=== PATIENT | female | born 1945 | race Caucasian/White ===

== ENCOUNTER 2016-04-21 09:08 | Emergency (ER) | payer MEDICARE, MEDICAID ==
[~2016-04-21] VITALS: Ht 157.5 cm; Wt 63.6 kg
[~2016-04-21 09:08] MED LIST: ALEN70TA2 PO; ASPI-973 PO; CALC1TAB23 PO; DICY10CA56 PO; METO-301 PO; OMEP20CA11 PO; PERM60CR4 TP
[2016-04-21 09:09] VITALS: BP 124/86; PULSE 109; RESP 28; O2SAT 99
--- NOTE | 2016-04-21 09:15 | ED.REPORT ---
HPI-Dyspnea / Wheezing Date of Service Apr 21, 2016 ED Provider: Micah Yuen Patient is a 71 year old female who presents to the ED complaining of cough onset one week ago. Associated symptoms include SOB, wheezing, and chest pain when coughing. She denies fever, abdominal pain, or any other symptoms. She denies taking any daily medications. Nursing Notes Stated Complaint: SICK/CHEST PAIN/SOB Chief Complaint: FLU/Cold Symptoms Nursing Notes Reviewed: Yes Allergies: Coded Allergies: No Known Allergies (Verified , 10/08/15) Scheduled Alendronate Sodium (Fosamax) 70 Mg Tablet 70 MG PO WEEKLY Aspirin (Aspirin) 81 Mg Tablet 81 MG PO DAILY Dicyclomine (Bentyl) 10 Mg Capsule 10 MG PO QID Doxycycline Monohyd (Doxycycline Monohyd) 100 Mg Tablet 100 MG PO BID Omeprazole (Omeprazole) 20 Mg Capsule.dr 20 MG PO DAILY Permethrin (Permethrin Cream) 60 Gm Cream..g. 1 APPLIC TP UD Follow package instructions Prednisone (PredniSONE) 20 Mg Tablet 40 MG PO DAILY Scheduled PRN Hydrocodone/Acetaminophen (Lortab 10 mg-300 mg/15 ml Elxr) 473 Ml Solution 10 ML PO Q4 PRN PRN For Pain Metoclopramide (Reglan) 10 Mg Tablet 10 MG PO QID PRN PRN nausea/abdominal cramping Miscellaneous Medications Calcium Carbonate/Vitamin D3 (Os-Ricardo 500+D3 Caplet) 500 Mg-600 Tablet 1 EACH PO General Time Seen by MD: 09:15 Chief Complaint Cough Hx Obtained From: Patient Arrived By: Walk-in Past Medical History Past Medical History Notes: PCP: Dr. Cordero Past Medical History Left shoulder pain chronic dysphagia lumbar pain carpal tunnel osteoporosis Reports: Hyperlipidemia, Hypertension Past Surgical History Pt had an upper GI colonoscopy for dysphagia with dx of reflux. Reports: Hysterectomy Family History Mother had heart problems, father of [place] Multiple family members with CAD Smoking History Light Tobacco Smoker Social History Alcohol Use: Denies alcohol use Drug Use: Denies drug use Ambulatory Status Independent Review of Systems Constitutional: Denies: Fever Respiratory: Reports: Non-productive cough, Shortness of breath Cardiovascular: Reports: Chest pain Complete sys rev & neg: except as marked. GI: Denies: Abdominal pain Physical Exam Initial Vital Signs Vital Signs (First) Date Time Temp Pulse Resp B/P Pulse Ox O2 Delivery O2 Flow Rate FiO2 04/21/16 09:09 36.3 109 28 124/86 99 Room Air Initial VS: Reviewed Head / Eyes: Atraumatic, Normocephalic Skin: Warm, Dry Neurologic: Alert, Oriented, Nonfocal Psychiatric: Mood/affect normal, Behavior normal, Normal thought content General/Constitutional: Awake, Alert, Well developed Neck: Full range of motion Respiratory / Chest: No rhonchi, No wheezing Rales / Rhonchi: Positive: Rales diffuse (Scattered ) Cardiovascular: Heart rate NL, Regular rhythm, Heart sounds NL Re-Eval/Medical Decision Med Decision/Clinical Course Given a week of cough in a smoker with apparent COPD though this is not diagnosed, I think empiric antibiotic/anti-inflammatory treatment is appropriate with close outpatient follow-up. Her initial vital signs looked somewhat concerning, but to interview her in the room she looks entirely well and her vital signs are not as bad as noted in triage, namely heart rate of 100 , respiratory rate of 20. Re-Evaluation/Progress : Time of Eval: 09:26 )( Re-Eval Resp / Chest: No wheezing Re-Evaluation/Progress Note: Discussed plan for discharge. Patient understands and agrees with plan. All questions addressed at this time. Counseled Regarding: Diagnosis, Need for follow-up, When/why to return to ED Discharge & Departure Impression: Primary Impression: Acute bronchitis Bronchitis organism: unspecified organism Qualified Code: J20.9 - Acute bronchitis, unspecified Additional Impressions: Cough Bronchitis due to tobacco use Disposition: Home Patient Instructions: Acute Bronchitis (ED), Cigarette Smoking and Its Health Risks (GEN), How to Stop Smoking (GEN) Additional Instructions: You should stop smoking. Smoke a few cigarettes a day is only slightly better than smoking 2 packs a day. This infection that you are suffering right now is directly related to your tobacco use. Use doxycycline 2 pills at the first dose and then 1 pill twice daily. Take prednisone 40 mg daily for 5 days. Use cough syrup 2 or 3 teaspoons every 4-6 hours as needed to help control the cough. The cough syrup has a narcotic in it and he should not drive a car or operate machinery or take care of young children while taking this medication. Referrals: Nasreen Cordero MD (PCP) copies to: Nasreen Cordero MD, Kirk H MD Apr 21, 2016 09:15 ALIZA FLORES Apr 21, 2016 09:26
[2016-04-21 09:23] VITALS: PULSE 100; RESP 20
[2016-04-21] MEDS ORDERED: HYDR473S48 PO (09:26)
[2016-04-21] MEDS ORDERED: PRE20 PO (09:26)
[2016-04-21] MEDS ORDERED: DOXY-232 PO (09:26)
[2016-04-21 09:35] VITALS: BP 124/86; PULSE 100; RESP 20; O2SAT 99
== END 2016-04-21 09:35 | disposition home or self-care (01) ==
LOC: SED 09:08
DX: J20.9 Acute bronchitis, unspecified (principal); F17.200 Nicotine dependence, unspecified, uncomplicated; E78.5 Hyperlipidemia, unspecified; I10 Essential (primary) hypertension; Z79.82 Long term (current) use of aspirin

== ENCOUNTER 2016-06-15 13:59 | Emergency (ER) | payer MEDICARE, MEDICAID ==
[~2016-06-15] VITALS: Ht 160 cm; Wt 63.6 kg
[~2016-06-15 13:59] MED LIST changes: +DOXY-232 PO; +HYDR473S48 PO; +PRE20 PO
[2016-06-15 14:19] VITALS: BP 106/77; PULSE 100; RESP 16; O2SAT 95
--- NOTE | 2016-06-15 14:48 | ED.REPORT ---
HPI-Extremity Problem Lower Date of Service Jun 15, 2016 ED Provider: Rosas Rios DO The patient is a 71 year old female with history of bursitis in her shoulder, hypertension, and hypertension, who presents to the emergency department complaining of right posterior knee pain that began this morning. While she was walking to the restroom this morning she suddenly develop pain to her left knee. She did not feel a tear or pop. The pain radiates down into her calf. She describes the pain as 10/10, constant, sharp pain. She is not able to bear weight. She has noticed some swelling. She denies any known injury or trauma. Her pain is still present. She has not had similar symptoms in the past. She denies prior surgeries to her lower extremities. She denies fever, chills, nausea, vomiting or rash. Nursing Notes Stated Complaint: RT KNEE PAIN Chief Complaint: Extremity Trauma Nursing Notes Reviewed: Yes Allergies: Coded Allergies: No Known Allergies (Verified , 10/08/15) Scheduled Alendronate Sodium (Fosamax) 70 Mg Tablet 70 MG PO WEEKLY Aspirin (Aspirin) 81 Mg Tablet 81 MG PO DAILY Dicyclomine (Bentyl) 10 Mg Capsule 10 MG PO QID Doxycycline Monohyd (Doxycycline Monohyd) 100 Mg Tablet 100 MG PO BID Omeprazole (Omeprazole) 20 Mg Capsule.dr 20 MG PO DAILY Permethrin (Permethrin Cream) 60 Gm Cream..g. 1 APPLIC TP UD Follow package instructions Prednisone (PredniSONE) 20 Mg Tablet 40 MG PO DAILY Scheduled PRN Hydrocodone/Acetaminophen (Lortab 10 mg-300 mg/15 ml Elxr) 473 Ml Solution 10 ML PO Q4 PRN PRN For Pain Metoclopramide (Reglan) 10 Mg Tablet 10 MG PO QID PRN PRN nausea/abdominal cramping Miscellaneous Medications Calcium Carbonate/Vitamin D3 (Os-Ricardo 500+D3 Caplet) 500 Mg-600 Tablet 1 EACH PO General Time Seen by MD: 14:27 Chief Complaint Knee injury right Hx Obtained From: Patient Arrived By: Wheelchair Onset Occurred: 5 - 8 hours ago Symptom Duration: Since onset Caused by: Mechanism unknown Location: : Knee right Quality: Painful Severity: Current: Severe Severity: Maximum: Severe Pertinent Negative: Pt denies other symptoms Exacerbated by: Range of motion, Movement Relieved by: Immobilization Recent Healthcare: No recent doctor visit, No recent hospitalization Similar Sx Previous: No Past Medical History Past Medical History Notes: PCP: Dr. Cordero Past Medical History Chronic left shoulder pain Chronic dysphagia Lumbar pain Carpal tunnel Osteoporosis Reports: Hyperlipidemia, Hypertension Past Surgical History Pt had an upper GI colonoscopy for dysphagia with dx of reflux. Reports: Hysterectomy Family History Mother had heart problems, father of [place] Multiple family members with CAD Smoking History Light Tobacco Smoker Social History Alcohol Use: Denies alcohol use Drug Use: Denies drug use Other Social History: Local resident Ambulatory Status Walker Review of Systems Constitutional: Denies: Chills, Fever Musculoskeletal: Reports: Extremity pain, Joint pain, Joint swelling Skin: Denies Rash Complete sys rev & neg: except as marked. GI: Denies: Nausea, Vomiting Physical Exam Initial Vital Signs Vital Signs (First) Date Time Temp Pulse Resp B/P Pulse Ox O2 Delivery O2 Flow Rate FiO2 06/15/16 14:19 36.1 100 16 106/77 95 Initial VS: Reviewed General/Constitutional: Well-developed, Well-nourished Head / Eyes: Atraumatic, Normocephalic, PERRL ENT: Mucous membranes moist, Conjunctiva normal, No scleral icterus Neck: Supple, Non-tender, Full range of motion Respiratory: Breath sounds normal, Clear to auscultation, No respiratory distress Cardiovascular: Regular rate & rhythm, Heart sounds normal, Intact distal pulses Abdomen / GI: Soft, Non-tender, No guarding, No rebound, No distention Upper Extremities: Vascular intact, Neuro intact, No swelling, No tenderness Skin: Warm, Dry, No cyanosis Neurologic: Alert, Oriented, Nonfocal Psychiatric: Mood/affect normal, Behavior normal, Normal thought content Lower Extremity / Pelvis / MS: Neurologic intact, Vascular intact Minimal swelling of right knee compared to left. Intact range of motion, somewhat limited by pain. Good passive range of motion. Good pulses. Sensory and motor intact. No redness, warmth, crepitus or fluctuance. No calf or leg swelling. Ankle / Foot: No deformity, Neurologic intact, Vascular intact Interpretation & Diagnostics X-Ray Interpretation X-Ray Ordered: Knee right Interpretation / Wet Read by: Wet read ED physician Interpretation: Normal exam, No fracture/dislocation Re-Eval/Medical Decision Med Decision/Clinical Course Not consistent with infectious or gouty pathology, x-ray obtain due to reported inability to bear weight, after applying Murali wrap patient is not ambulatory with her walker. Will be treated with NSAIDs. Strict return and follow-up precautions are given. Source of Hx: Old records Re-Evaluation/Progress #1: Time of Eval: 15:22 Re-Evaluation/Progress Note: Rechecked the patient. Discussed results, diagnosis, and plan for discharge. Will apply murali wrap and road test prior to discharge. Re-Evaluation/Progress #2: Time of Eval: 15:28 Re-Evaluation/Progress Note: The patient was able to ambulate with a walker. Counseled Regarding: Diagnosis, Need for follow-up, When/why to return to ED Discharge & Departure Impression: Primary Impression: Right knee injury Encounter type: initial encounter Qualified Code: S89.91XA - Unspecified injury of right lower leg, initial encounter Disposition: Home Discharge Condition All VS Reviewed: Yes Condition: Stable Additional Instructions: Thank you for entrusting us with your care today. Your x-ray today is reassuring. There is no evidence of an acute fracture. Wear the murali wrap and limit weight bearing. Take Naproxen as prescribed twice daily. Apply ice to the painful areas. Followup with your regular doctor or an video specialist in the next few days for recheck. We have given you a referral to Dr. Mello. Return to the emergency department if you develop increased redness, swelling or pain, fever, chills, vomiting, or any other new or concerning symptoms. Referrals: Nasreen Cordero MD (PCP) Tano Mello Attestation Portions of this note were transcribed by Mónica Khan. I, Dr. Rios personally performed the history, physical exam and medical decision-making; I reviewed and confirmed the accuracy of the information in the transcribed note. Signed by: Romero Tolentino, 06/15/2016 at 1530. copies to: Nasreen Cordero MD, Timothy S DO Jun 15, 2016 14:48 Mónica Khan Jun 15, 2016 14:52
--- NOTE | 2016-06-15 15:28 | DRSVH ---
PROCEDURE: X-RAY RIGHT KNEE, THREE VIEWS ([id number]) INDICATIONS: knee pain TECHNIQUE: 3 views of the knee were acquired. COMPARISON: None. FINDINGS: Bones: No fractures or dislocations. No suspicious bony lesions. Soft tissues: No joint effusion. No suspicious soft tissue calcifications. IMPRESSION: Minimal hypertrophic bone indicating early joint degeneration. Dictated by: Alfred Ramos RRA Interpreted: Marcelle Rucker MD on 06/15/2016 at 15:28 Transcribed by: SUSHANT on 06/15/2016 at 15:28 Approved by: Marcelle Rucker MD, PhD on 06/15/2016 at 17:36
== END 2016-06-15 15:34 | disposition home or self-care (01) ==
LOC: SED 13:59
DX: S89.91XA Unspecified injury of right lower leg, initial encounter (principal); X50.1XXA Overexertion from prolonged static or awkward postures, initial encounter; Y92.9 Unspecified place or not applicable; Y93.01 Activity, walking, marching and hiking; Y99.8 Other external cause status; E78.5 Hyperlipidemia, unspecified; I10 Essential (primary) hypertension; K21.9 Gastro-esophageal reflux disease without esophagitis; F17.200 Nicotine dependence, unspecified, uncomplicated; Z87.39 Personal history of other diseases of the musculoskeletal system and connective tissue; Z79.82 Long term (current) use of aspirin